=== PATIENT | male | born 1970 | race African-American/Black ===

== ENCOUNTER 2022-05-23 07:35 | Emergency (ER) | payer MEDICAID ==
[~2022-05-23] VITALS: Ht 172.7 cm; Wt 84.1 kg
[2022-05-23 07:58] LABS: COVID AG,FIA SOURCE NASAL SWAB
[2022-05-23] MEDS ORDERED: ALBUTEROL SULFATE HFA 90 MCG/PUFF 8 GM INHALER IH ONE (08:30)
[2022-05-23] MEDS ORDERED: IBUPROFEN 600 MG TABLET PO ONE (08:30)
[2022-05-23] MEDS ORDERED: GuaiFENesin/D-METHORPHAN [SUGAR-FREE] 200-20MG/10 ML SYRUP UDCUP PO ONE (08:30)
[2022-05-23 08:37] LABS: INFLUENZA TYPE A NEGATIVE FOR TYPE A (NEGATIVE); INFLUENZA TYPE B NEGATIVE FOR TYPE B (NEGATIVE)
[2022-05-23] MEDS ORDERED: IBUP-1554 PO (09:02)
[2022-05-23] MEDS ORDERED: ALBU8HFA IH (09:02)
[2022-05-23] MEDS ORDERED: GUAIFDM PO (09:02)
[2022-05-23 09:22] VITALS: BP 125/74
== END 2022-05-23 09:52 | disposition home or self-care (01) ==
LOC: EMS 07:36
DX: R07.89 Other chest pain (principal); J45.901 Unspecified asthma with (acute) exacerbation; J06.9 Acute upper respiratory infection, unspecified; F17.210 Nicotine dependence, cigarettes, uncomplicated; Z20.822 Contact with and (suspected) exposure to COVID-19
CPT/HCPCS: 99284; 71045; 87426; 87804; 94640; J3535

== ENCOUNTER 2022-06-16 06:24 | Emergency (ER) | payer MEDICAID ==
[~2022-06-16] VITALS: Ht 170.2 cm; Wt 82.0 kg
[~2022-06-16 06:24] MED LIST: ALBU18HF12 IH; GUAIFDM PO; IBUP-1554 PO
[2022-06-16] MEDS ORDERED: IPRATROPIUM BROMIDE 0.5 MG/2.5 ML NEB SOLUTION NEB ONE (06:45)
[2022-06-16] MEDS ORDERED: ACETAMINOPHEN 500 MG TABLET PO ONE (06:45)
[2022-06-16] MEDS ORDERED: ALBUTEROL SULFATE 2.5 MG/0.5 ML NEB SOLUTION NEB ONE (06:45)
[2022-06-16 06:55] LABS: COVID AG,FIA SOURCE NASOPHARYNGEAL
[2022-06-16 06:56] LABS: BASOPHILS % (AUTO) 0.6 % (0.0-2.0); EOSINOPHILS % (AUTO) 5.7 % (1.0-6.0); HEMATOCRIT 42.3 % (41-53); HEMOGLOBIN 14.3 g/dL (13.5-17.5); LYMPHOCYTES # (AUTO) 2.7 K/uL (1.0-4.8); LYMPHOCYTES % (AUTO) 34.9 % (22.0-44.0); MEAN CORPUSCULAR HEMOGLOBIN 30.2 pg (26.0-34.0); MEAN CORPUSCULAR HGB CONC 33.8 G/dL (31.0-37.0); MEAN CORPUSCULAR VOLUME 89 fL (80-100); MONOCYTES # (AUTO) 0.8 K/uL (0.1-1.0); MONOCYTES % (AUTO) 10.4 % (2.0-9.0); NEUTROPHILS # (AUTO) 3.7 K/uL (1.8-7.7); NEUTROPHILS % (AUTO) 48.4 % (40.0-70.0); PLATELET COUNT (AUTO) 297 K/uL (150-450); RED BLOOD CELL COUNT(AUTO) 4.74 MIL/uL (4.50-5.90); RED CELL DISTRIBUTION WIDTH 14.4 % (11.5-14.5)
[2022-06-16] MEDS ORDERED: IOHEXOL 350 MG/ML 100 ML VIAL ONE (07:02)
[2022-06-16 07:03] LABS: ANION GAP 7 mmol/L (8-16); CALCIUM, TOTAL 9.3 mg/dL (8.8-10.5); CARBON DIOXIDE 27 mmol/L (22-29); CHLORIDE 106 mmol/L (98-107); GLOMERULAR FILTR. RATE CALC > 60 mL/min (>60); GLUCOSE,RANDOM 109 mg/dL (70-110); POTASSIUM 4.3 mmol/L (3.5-5.1); SODIUM SERUM 140 mmol/L (136-145); UREA NITROGEN, BLOOD 11 mg/dL (7-18)
[2022-06-16] MEDS ORDERED: SODIUM CHLORIDE 0.9% 100 ML ONE (07:03)
[2022-06-16 07:07] LABS: INR 0.9 (0.9-1.1)
[2022-06-16 07:24] LABS: INFLUENZA TYPE A NEGATIVE FOR TYPE A (NEGATIVE); INFLUENZA TYPE B NEGATIVE FOR TYPE B (NEGATIVE)
[2022-06-16 07:28] LABS: B-TYPE NATRIURETIC PEPTIDE < 5 pg/mL (0-100)
[2022-06-16 07:29] LABS: ALANINE AMINOTRANSFERASE 30 U/L (12-78); ALKALINE PHOSPHATASE 76 U/L (46-116); ASPARTATE AMINOTRANSFERASE 12 U/L (15-37); BILIRUBIN,TOTAL 0.3 mg/dL (0.1-1.0); CREATINE KINASE, TOTAL ONLY 107 U/L (39-308); TOTAL PROTEIN, SERUM 7.1 g/dL (6.4-8.2)
[2022-06-16 08:35] VITALS: BP 146/97
[2022-06-16] MEDS ORDERED: AZITHROMYCIN 500 MG TABLET PO ONE (10:45)
[2022-06-16] MEDS ORDERED: ACET-3385 PO (10:48)
[2022-06-16] MEDS ORDERED: AZIT-103 PO (10:48)
[2022-06-16] MEDS ORDERED: IBUP-1492 PO (10:48)
== END 2022-06-16 12:10 | disposition home or self-care (01) ==
LOC: EMS 06:28
DX: S22.31XA Fracture of one rib, right side, initial encounter for closed fracture (principal); J18.9 Pneumonia, unspecified organism; J45.909 Unspecified asthma, uncomplicated; F17.210 Nicotine dependence, cigarettes, uncomplicated; Z20.822 Contact with and (suspected) exposure to COVID-19; X58.XXXA Exposure to other specified factors, initial encounter; Y93.89 Activity, other specified; Y92.89 Other specified places as the place of occurrence of the external cause; Y99.8 Other external cause status
CPT/HCPCS: 99285; 71275; 71045; 87426; 80053; 82550; 83880; 84484; 85025; 85379; 85610; 85730; 87804; 36415; 94640; 93005; G0238; Q9967; J7050

== ENCOUNTER 2022-11-06 04:16 | Emergency (ER) | payer MEDICAID ==
[~2022-11-06] VITALS: Ht 170.2 cm; Wt 86.4 kg
[~2022-11-06 04:16] MED LIST changes: +ACET-3385 PO; +AZIT-103 PO; +IBUP-1492 PO
[2022-11-06] MEDS ORDERED: IBUP-1554 PO (04:44)
[2022-11-06] MEDS ORDERED: [UNRECOGNIZED DRUG - CODE] TP (04:44)
[2022-11-06] MEDS ORDERED: POLY238P PO (04:44)
[2022-11-06] MEDS ORDERED: HYDR-4072 PO (04:44)
[2022-11-06] MEDS ORDERED: CEPH-558 PO (04:44)
[2022-11-06] MEDS ORDERED: ANUSHCS PR (04:44)
[2022-11-06] MEDS ORDERED: HYDROCODONE/ACETAMINOPHEN 5-325 MG TABLET PO ONE (04:45)
[2022-11-06] MEDS ORDERED: POLYETHYLENE GLYCOL 3350 17 GM PACKET PO ONE (04:45)
[2022-11-06 04:50] VITALS: BP 135/89; PULSE 89; RESP 12; TEMP 98.3
== END 2022-11-06 04:56 | disposition home or self-care (01) ==
LOC: EMS 04:18
DX: K64.4 Residual hemorrhoidal skin tags (principal); J45.909 Unspecified asthma, uncomplicated; F17.210 Nicotine dependence, cigarettes, uncomplicated; F12.90 Cannabis use, unspecified, uncomplicated
CPT/HCPCS: 99283

== ENCOUNTER 2023-04-09 19:35 | Emergency (ER) | payer MEDICAID ==
[~2023-04-09] VITALS: Ht 170.2 cm; Wt 86.0 kg
[~2023-04-09 19:35] MED LIST changes: +ANUSHCS PR; +CEPH-558 PO; +HYDR-4072 PO; +POLY238P PO; +[UNRECOGNIZED DRUG - CODE] TP
[2023-04-09 19:45] VITALS: TEMP 98.5
[2023-04-09 20:10] LABS: BASOPHILS % (AUTO) 1.1 % (0.0-2.0); EOSINOPHILS % (AUTO) 4.7 % (1.0-6.0); HEMATOCRIT 41.9 % (41-53); HEMOGLOBIN 13.8 g/dL (13.5-17.5); LYMPHOCYTES # (AUTO) 4.8 K/uL (1.0-4.8); LYMPHOCYTES % (AUTO) 51.4 % (22.0-44.0); MEAN CORPUSCULAR HEMOGLOBIN 29.9 pg (26.0-34.0); MEAN CORPUSCULAR HGB CONC 32.8 G/dL (31.0-37.0); MEAN CORPUSCULAR VOLUME 91 fL (80-100); MONOCYTES # (AUTO) 0.7 K/uL (0.1-1.0); MONOCYTES % (AUTO) 7.4 % (2.0-9.0); NEUTROPHILS # (AUTO) 3.3 K/uL (1.8-7.7); NEUTROPHILS % (AUTO) 35.4 % (40.0-70.0); PLATELET COUNT (AUTO) 280 K/uL (150-450); RED BLOOD CELL COUNT(AUTO) 4.61 MIL/uL (4.50-5.90); RED CELL DISTRIBUTION WIDTH 14.2 % (11.5-14.5); WHITE BLOOD COUNT (AUTO) 9.3 K/uL (4.5-11.0)
[2023-04-09 20:27] LABS: ANION GAP 9 mmol/L (8-16); CALCIUM, TOTAL 9.4 mg/dL (8.8-10.5); CARBON DIOXIDE 29 mmol/L (22-29); CHLORIDE 104 mmol/L (98-107); CREATININE 0.97 mg/dL (0.60-1.30); GLOMERULAR FILTR. RATE CALC > 60 mL/min (>60); GLUCOSE,RANDOM 113 mg/dL (70-110); POTASSIUM 3.9 mmol/L (3.5-5.1); SODIUM SERUM 142 mmol/L (136-145); UREA NITROGEN, BLOOD 12 mg/dL (7-18)
[2023-04-09 20:32] LABS: ALANINE AMINOTRANSFERASE 36 U/L (12-78); ALBUMIN 3.9 g/dL (3.4-5.0); ALKALINE PHOSPHATASE 77 U/L (46-116); ASPARTATE AMINOTRANSFERASE 18 U/L (15-37); BILIRUBIN,TOTAL 0.2 mg/dL (0.1-1.0); TOTAL PROTEIN, SERUM 6.7 g/dL (6.4-8.2)
[2023-04-09 20:36] LABS: TROPONIN I-HIGH SENSITIVITY 5 ng/L (<76)
[2023-04-09 20:50] VITALS: BP 134/90
[2023-04-09 21:51] LABS: INFLUENZA A-RTPCR,COMBO NEGATIVE (NEGATIVE); INFLUENZA B-RTPCR,COMBO NEGATIVE (NEGATIVE); RESPIRATORY SYNCYTIAL VRS-PCR NEGATIVE (NEGATIVE); SARS COVID19 RTPCR, COMBO NEGATIVE (NEGATIVE)
[2023-04-09] MEDS ORDERED: BENZ-227 PO (22:02)
[2023-04-09 22:07] VITALS: PULSE 88; RESP 16; O2SAT 96; O2SAT 98
[2023-04-09] MEDS: ALBUTEROL SULFATE HFA 90 MCG/PUFF 8 GM INHALER IH ONE (22:07)
[2023-04-09] MEDS: BENZONATATE 100 MG CAPSULE PO ONE (22:19)
== END 2023-04-09 22:35 | disposition home or self-care (01) ==
LOC: EMS 19:38
DX: J20.9 Acute bronchitis, unspecified (principal); R07.89 Other chest pain; F17.210 Nicotine dependence, cigarettes, uncomplicated; Z20.822 Contact with and (suspected) exposure to COVID-19
CPT/HCPCS: 99285; 0241U; 71046; 80053; 84484; 85025; 36415; 94640; 93005; J3535

== ENCOUNTER 2023-04-17 20:52 | Emergency (ER) | payer MEDICAID ==
[~2023-04-17] VITALS: Ht 170.2 cm; Wt 86.4 kg
[~2023-04-17 20:52] MED LIST changes: +BENZ-227 PO
[2023-04-17 21:27] VITALS: TEMP 98.4
[2023-04-17] MEDS: PredniSONE 20 MG TABLET PO ONE (23:39)
[2023-04-17 23:45] VITALS: PULSE 96; PULSE 98; RESP 16; O2SAT 96
[2023-04-17] MEDS: ALBUTEROL SULFATE 2.5 MG/0.5 ML NEB SOLUTION NEB ONE (23:45)
[2023-04-17] MEDS: IPRATROPIUM BROMIDE 0.5 MG/2.5 ML NEB SOLUTION NEB ONE (23:45)
[2023-04-18] VITALS: PULSE 105; RESP 16; O2SAT 100
[2023-04-18 00:40] LABS: COVID AG,FIA SOURCE NASAL SWAB
[2023-04-18 00:47] VITALS: BP 113/79; PULSE 105; RESP 16
[2023-04-18 00:53] LABS: INFLUENZA TYPE A NEGATIVE FOR TYPE A (NEGATIVE); INFLUENZA TYPE B NEGATIVE FOR TYPE B (NEGATIVE); SARS-COV2 (COVID) ANTIGEN,FIA Negative (Negative)
[2023-04-18] MEDS ORDERED: PRED-554 PO (01:38)
[2023-04-18] MEDS ORDERED: AZIT250T9 PO (01:38)
[2023-04-18] MEDS ORDERED: ALBU18HF12 IH (01:39)
== END 2023-04-18 01:52 | disposition home or self-care (01) ==
LOC: EMS 20:52
DX: J45.901 Unspecified asthma with (acute) exacerbation (principal); F17.210 Nicotine dependence, cigarettes, uncomplicated; Z20.822 Contact with and (suspected) exposure to COVID-19
CPT/HCPCS: 99284; 71045; 87426; 87804; 94640; J7512; J7613

== ENCOUNTER 2023-12-20 09:04 | Emergency (ER) | payer MEDICAID ==
[~2023-12-20] VITALS: Ht 175.3 cm; Wt 81.8 kg
[~2023-12-20 09:04] MED LIST changes: -AZIT-103 PO; +AZIT-164 PO; +PRED-554 PO
[2023-12-20 09:09] VITALS: BP 130/87; PULSE 80; RESP 18; TEMP 98; O2SAT 98
[2023-12-20] MEDS ORDERED: PRED-554 PO (09:35)
[2023-12-20] MEDS ORDERED: DIPH-1243 PO (09:36)
[2023-12-20] MEDS: PredniSONE 20 MG TABLET PO ONE (09:40)
[2023-12-20] MEDS: DiphenhydrAMINE HCL 25 MG CAPSULE PO ONE (09:40)
== END 2023-12-20 09:54 | disposition home or self-care (01) ==
LOC: EMS 09:06
DX: R21 Rash and other nonspecific skin eruption (principal); J45.909 Unspecified asthma, uncomplicated; F12.90 Cannabis use, unspecified, uncomplicated; F17.210 Nicotine dependence, cigarettes, uncomplicated
CPT/HCPCS: 99283; J7512